=== PATIENT | male | born 1990 | race African-American/Black ===

== ENCOUNTER 2017-10-23 14:08 | Emergency (ER) | payer OTHER ==
[~2017-10-23] VITALS: Ht 182.9 cm; Wt 118.0 kg
[~2017-10-23 14:08] MED LIST: AUGM500T7 PO
[2017-10-23 14:15] VITALS: BP 143/73; PULSE 92; RESP 16; TEMP 97.9; O2SAT 100
[2017-10-23] MEDS ORDERED: RABIES VACCINE HUMAN DIPL CELL 2.5 UNITS/ML SYRINGE IM ONE (14:30)
[2017-10-23] MEDS ORDERED: RABIES IMMUNE GLOBULIN INJ 1,500 UNITS/10 ML VIAL IM ONE (14:30)
--- NOTE | 2017-10-23 14:32 | PD ---
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 It was through his pants. He has minor puncture wounds noted. No bleeding. Pain is mild. Patient is up-to- date on his tetanus. Patient is unsure of the dogs vaccine status. Animal control has been notified, and animal is quarantined in his home. This is a workplace injury. He denies any other injury. He has no loss of function. He has no known drug allergies. [facility] Past Medical History Medical History: Denies Significant Hx Asthma: Yes Diminished Hearing: No Tetanus Vaccination: < 5 Years Influenza Vaccination: Yes Past Surgical History Surgical History: No Previous Surgery Social History Alcohol Use: No Tobacco Use: No Substance Use: No Allergies-Medications (Allergen,Severity, Reaction): Coded Allergies: No Known Allergies (Verified Allergy, Unknown, 10/23/17) Reported Meds & Prescriptions Reported Meds & Active Scripts Active Augmentin (Amoxicillin-Clavulanate) 875-125 Mg Tab 1 Tab PO BID 5 Days Reported Augmentin 500MG/125MG (Amoxicillin/Clavulanate Potassium) 500 Mg Tab 500 Mg PO Q12H Physical Exam Narrative GENERAL: Patient is in no acute distress SKIN: Warm and dry. Normal color. Normal turgor. Patient has 2 superficial puncture wounds to the right upper lateral moore consistent with dog bite. Bleeding is minimal. HEAD: Atraumatic. Normocephalic. EYES: Pupils equal and round. No scleral icterus. No injection or drainage. ENT: No nasal bleeding or discharge. Mucous membranes pink and moist. Pharynx is clear. Airways patent NECK: Trachea midline. Supple and nontender per CARDIOVASCULAR: Regular rate and rhythm. RESPIRATORY: No accessory muscle use. Clear to auscultation. Breath sounds equal bilaterally. MUSCULOSKELETAL: Extremities without clubbing, cyanosis, or edema. No obvious deformities. Range of motion is normal. Strength is normal. Minimal pain at the bite site. NEUROLOGICAL: Awake and alert. No obvious cranial nerve deficits. Motor grossly within normal limits. Five out of 5 muscle strength in the arms and legs. Normal speech. PSYCHIATRIC: Appropriate mood and affect; insight and judgment normal. Data Data Last Documented VS Vital Signs Date Time Temp Pulse Resp B/P (MAP) Pulse Ox O2 Delivery O2 Flow Rate FiO2 10/23/17 14:15 97.9 92 16 143/73 (96) 100 Orders Orders Rabies Immune Globulin Inj (Hyperrab S/D (10/23/17 14:30) Rabies Vaccine Human Cell Inj (Imovax In (10/23/17 14:30) MDM Medical Decision Making Medical Screen Exam Complete: Yes Emergency Medical Condition: Yes Differential Diagnosis Workplace injury. Dog bite. Need for rabies immunoglobulin and first vaccine. Narrative Course Patient is in no obvious distress. Wounds are superficial and not bleeding. Patient is given Augmentin 875 mg p.o. now. Patient is given rabies immunoglobulin around the area and 2.5 mg IM. Patient also given first rabies vaccine IM. Patient continued on Augmentin 875 twice daily for 5 days. Patient to follow-up with either Worker's Comp. or emergency department for second rabies vaccine in 3 days if felt warranted by animal control. Patient needs to come on day 3, 7, and 14 for complete rabies vaccine. Workers comp forms are completed. Diagnosis Primary Impression: Work related injury Additional Impressions: Dog bite Qualified Codes: W54.0XXA - Bitten by dog, initial encounter Rabies, need for prophylactic vaccination against Patient Instructions: General Instructions, Rabies (ED), Rabies Immune Globulin (By injection), Rabies Vaccine (ED) Additional Instructions: Wounds are superficial and not bleeding. Patient is given Augmentin 875 mg p.o. now. Patient is given rabies immunoglobulin around the area and 2.5 mg IM. Patient also given first rabies vaccine IM. Patient continued on Augmentin 875 twice daily for 5 days. Patient to follow-up with either Worker's Comp. or emergency department for second rabies vaccine in 3 days if felt warranted by animal control. Patient needs to come on day 3, 7, and 14 for complete rabies vaccine. Workers comp forms are completed. Med/Other Pt SpecificInfo: Prescription(s) given Scripts Amoxicillin-Clavulanate (Augmentin) 875-125 Mg Tab 1 TAB PO BID for Infection for 5 Days, #10 TAB 0 Refills Prov: Piper Chin MD 10/23/17 Disposition: 01 DISCHARGE HOME Condition: Stable Contreras Smith Oct 23, 2017 14:32
[2017-10-23] MEDS ORDERED: AUGM875T3 PO (15:49)
== END 2017-10-23 16:23 | disposition home or self-care (01) ==
LOC: NEPD 14:08
DX: S81.851A Open bite, right lower leg, initial encounter (principal); J45.909 Unspecified asthma, uncomplicated; W54.0XXA Bitten by dog, initial encounter; Y99.0 Civilian activity done for income or pay; Z23 Encounter for immunization
CPT/HCPCS: 90375; 90471; 90675; 96372

== ENCOUNTER 2017-10-26 15:26 | Emergency (ER) | payer OTHER ==
[~2017-10-26 15:26] MED LIST changes: +AUGM875T3 PO
[2017-10-26 15:43] VITALS: BP 129/88; PULSE 70; RESP 18; TEMP 98.4; O2SAT 98
[2017-10-26] MEDS ORDERED: RABIES VACCINE HUMAN DIPL CELL 2.5 UNITS/ML SYRINGE IM ONE (16:00)
--- NOTE | 2017-10-26 16:02 | PD ---
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 Patient states that he was bit by a dog which was under vaccinated 3 days ago. The dog is in custody with the owners. He did arrest one of the owners of the animal. He called animal control as well as the public health officials and said that possibly the vaccines can be discontinued at this time and instead monitor the animal. Patient has no complaints, denies any redness at the bite site, denies any pain in his joints. He has returned to work. Symptoms minimal, context as above, duration as above, resolving peer PFS Past Medical History Asthma: Yes Diminished Hearing: No Immunizations Current: Yes Influenza Vaccination: Yes Social History Alcohol Use: No Tobacco Use: No Substance Use: No Allergies-Medications (Allergen,Severity, Reaction): Coded Allergies: No Known Allergies (Verified Allergy, Unknown, 10/26/17) Reported Meds & Prescriptions Reported Meds & Active Scripts Active Augmentin (Amoxicillin-Clavulanate) 875-125 Mg Tab 1 Tab PO BID 5 Days Review of Systems Except as stated in HPI: all other systems reviewed are Neg Physical Exam Narrative GENERAL: Well-nourished, well-developed patient. Nontoxic appearance. SKIN: Focused skin assessment warm/dry. Small bite minor as previously documented are healing well. No surrounding erythema or discharge per HEAD: Normocephalic. EYES: No scleral icterus. No injection or drainage. NECK: Supple, trachea midline. No JVD or lymphadenopathy. CARDIOVASCULAR: Regular rate and rhythm without murmurs, gallops, or rubs. RESPIRATORY: Breath sounds equal bilaterally. No accessory muscle use. GASTROINTESTINAL: Abdomen soft, non-tender, nondistended. MUSCULOSKELETAL: No cyanosis, or edema. BACK: Nontender without obvious deformity. No CVA tenderness. Data Data Last Documented VS Vital Signs Date Time Temp Pulse Resp B/P (MAP) Pulse Ox O2 Delivery O2 Flow Rate FiO2 10/26/17 15:43 98.4 70 18 129/88 (102) 98 Orders Orders Rabies Vaccine Human Cell Inj (Imovax In (10/26/17 16:00) Ed Discharge Order (10/26/17 16:02) [facility] Medical Decision Making Medical Screen Exam Complete: Yes Emergency Medical Condition: Yes Differential Diagnosis Rabies exposure, dog bite, cellulitis excluded clinically peer Narrative Course Discussed with the patient at length regarding the reliability of the owners of the animal to report if the animal become sick. We are uneasy at this time. Given that the animal was under vaccinated, I suggested that we continue on with the rabies vaccines given the uniform mortality of the rabies disease should he be exposed to it. He verbalized understanding and would like to proceed with a second dose of rabies vaccine. He was administered and he is stable for discharge. Discussed return to ED criteria peer Diagnosis Primary Impression: Rabies exposure Additional Instructions: Return on tuesday10/30/2017 for your third dose. Disposition: 01 DISCHARGE HOME Condition: Stable Toribio Rosenbaum MD Oct 26, 2017 16:02
== END 2017-10-26 16:35 | disposition home or self-care (01) ==
LOC: NEPD 15:26
DX: Z20.3 Contact with and (suspected) exposure to rabies (principal); J45.909 Unspecified asthma, uncomplicated
CPT/HCPCS: 90471; 90675

== ENCOUNTER 2017-10-30 16:04 | Emergency (ER) | payer OTHER ==
[~2017-10-30] VITALS: Ht 182.9 cm; Wt 113.5 kg
[~2017-10-30 16:04] MED LIST changes: -AUGM500T7 PO
[2017-10-30 16:07] VITALS: BP 139/77; PULSE 68; RESP 16; TEMP 97.8; O2SAT 96
[2017-10-30] MEDS ORDERED: RABIES VACCINE HUMAN DIPL CELL 2.5 UNITS/ML SYRINGE IM ONE (18:45)
--- NOTE | 2017-10-30 18:56 | PD ---
HPI Chief Complaint: Wound/Suture/Staple Re-Check Time Seen by Provider: 18:50 Travel History International Travel<30 days: No Contact w/Intl Traveler<30days: No Traveled to known affect area: No History of Present Illness HPI 27-year-old male here for post exposure rabies vaccine. Today is day 7 after he was initially bitten. Patient presented on day 0 as well as day 3. He was bitten in his right leg. This was not his dog, and he is unsure of the dog's current condition. He denies any physical complaints. He states that his wounds are healing well. No fevers, nausea, or vomiting. PFSH Past Medical History Asthma: Yes Diminished Hearing: No Immunizations Current: Yes Past Surgical History Surgical History: No Previous Surgery Social History Alcohol Use: No Tobacco Use: No Substance Use: No Allergies-Medications (Allergen,Severity, Reaction): Coded Allergies: No Known Allergies (Verified Allergy, Unknown, 10/26/17) Reported Meds & Prescriptions Reported Meds & Active Scripts Active Augmentin (Amoxicillin-Clavulanate) 875-125 Mg Tab 1 Tab PO BID 5 Days Review of Systems Except as stated in HPI: all other systems reviewed are Neg Physical Exam Narrative GENERAL: Well-developed, well-nourished, comfortable, no apparent distress. SKIN: Two well-healing puncture wounds to right lateral leg without warmth erythema. No crepitus. HEAD: Atraumatic. Normocephalic. EYES: Pupils equal and round. No scleral icterus. No injection or drainage. ENT: Mucous membranes pink and moist. NECK: Trachea midline. No JVD. No nuchal rigidity. RESPIRATORY: No accessory muscle use. MUSCULOSKELETAL: No obvious deformities. No clubbing. No cyanosis. No edema. NEUROLOGICAL: Awake and alert. No obvious cranial nerve deficits. Motor grossly within normal limits. Normal speech. PSYCHIATRIC: Appropriate mood and affect; insight and judgment normal. Data Data Last Documented VS Vital Signs Date Time Temp Pulse Resp B/P (MAP) Pulse Ox O2 Delivery O2 Flow Rate FiO2 10/30/17 16:07 97.8 68 16 139/77 (97) 96 Orders Orders Rabies Vaccine Human Cell Inj (Imovax In (10/30/17 18:45) [facility] Medical Decision Making Medical Screen Exam Complete: Yes Emergency Medical Condition: Yes Differential Diagnosis Rabies post exposure prophylaxis. Narrative Course Patient is here for day 7 rabies postexposure prophylaxis vaccine. He has no physical complaints. His bite wounds seem to be healing well without signs of infection. He will return on day 14 for his last vaccine. Diagnosis Primary Impression: Need for post exposure prophylaxis for rabies Referrals: Primary Care Physician 3 days Additional Instructions: Return to the emergency department in 1 week, day 14 after the initial dog bite , for your final post exposure rabies vaccine. Disposition: 01 DISCHARGE HOME Condition: Stable Jason Vera MD Oct 30, 2017 18:56
== END 2017-10-30 19:26 | disposition home or self-care (01) ==
LOC: NEPD 16:04
DX: Z29.14 Encounter for prophylactic rabies immune globulin (principal); J45.909 Unspecified asthma, uncomplicated
CPT/HCPCS: 90471; 90675

== ENCOUNTER 2017-11-06 19:26 | Emergency (ER) | payer OTHER ==
[2017-11-06 19:39] VITALS: BP 153/85; PULSE 79; RESP 18; TEMP 98.9; O2SAT 98
--- NOTE | 2017-11-06 19:50 | PD ---
HPI Chief Complaint: Medical Clearance Time Seen by Provider: 19:45 Travel History International Travel<30 days: No Contact w/Intl Traveler<30days: No Traveled to known affect area: No History of Present Illness HPI 27-year-old male here for his day 14 post exposure rabies vaccine. The patient was bitten and initially evaluated in the emergency department on 10/23/17. He sustained a bite to his right leg. States that the wound is healing well. No physical complaints. PFSH Past Medical History Asthma: Yes Diminished Hearing: No Immunizations Current: Yes Past Surgical History Surgical History: No Previous Surgery Social History Alcohol Use: No Tobacco Use: No Substance Use: No Allergies-Medications (Allergen,Severity, Reaction): Coded Allergies: No Known Allergies (Verified Allergy, Unknown, 10/26/17) Reported Meds & Prescriptions Reported Meds & Active Scripts Active Augmentin (Amoxicillin-Clavulanate) 875-125 Mg Tab 1 Tab PO BID 5 Days Review of Systems Except as stated in HPI: all other systems reviewed are Neg Physical Exam Narrative GENERAL: Well-developed, well-nourished, comfortable, no apparent distress. SKIN: Focused skin assessment warm/dry. Well-healed puncture/bite wound to right lateral leg without warmth or erythema. NEUROLOGICAL: Awake and alert. No obvious cranial nerve deficits. Motor grossly within normal limits. Normal speech. PSYCHIATRIC: Appropriate mood and affect; insight and judgment normal. Data Data Last Documented VS Vital Signs Date Time Temp Pulse Resp B/P (MAP) Pulse Ox O2 Delivery O2 Flow Rate FiO2 11/06/17 19:39 98.9 79 18 153/85 (107) 98 Orders Orders Rabies Vaccine Human Cell Inj (Imovax In (11/06/17 20:00) [facility] Medical Decision Making Medical Screen Exam Complete: Yes Emergency Medical Condition: Yes Medical Record Reviewed: Yes Differential Diagnosis Rabies post exposure prophylaxis Narrative Course This is a 27-year-old male here for his day 14 rabies post exposure prophylaxis vaccine. He appears well. He feels well. His bite wound is well-healed without signs of infection. Diagnosis Primary Impression: Need for post exposure prophylaxis for rabies Disposition: 01 DISCHARGE HOME Condition: Stable Jason Vera MD November 06, 2017 19:50
[2017-11-06] MEDS ORDERED: RABIES VACCINE HUMAN DIPL CELL 2.5 UNITS/ML SYRINGE IM ONE (20:00)
== END 2017-11-06 20:17 | disposition home or self-care (01) ==
LOC: NEPD 19:26
DX: S81.851D Open bite, right lower leg, subsequent encounter (principal); W64.XXXD Exposure to other animate mechanical forces, subsequent encounter; Z23 Encounter for immunization
CPT/HCPCS: 90471; 90675